=== PATIENT | female | born 1990 | race Caucasian/White ===

== ENCOUNTER 2017-08-17 06:18 | Emergency (ER) | payer OTHER ==
[2017-08-17 06:44] VITALS: BP 122/73; PULSE 79; TEMP 98.6; BMI 19.5
--- NOTE | 2017-08-17 06:56 | PDOC ---
History of Present Illness - General History Source: Patient Exam Limitations: No Limitations <Debbie Darnell - Last Filed: 08/17/17 06:50> - General History Source: Patient Exam Limitations: No Limitations - History of Present Illness Initial Comments: 08/17/17 06:56 The patient is a 26 year old female with no significant PMH who presents to the emergency department with a cat bite from approximately 1 hour ago. 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 The cat began seizing and bit the patient, leaving a small punctate on the patients left fourth finger. The patient was evaluated last year for a similar episode and received a Tetanus shot during that visit. The patient denies chest pain, shortness of breath, headache and dizziness. Denies fever, chills, nausea, vomit, diarrhea and constipation. Denies dysuria, frequency, urgency and hematuria. Allergies: NKA Social history: No reported cigarette, alcohol, or drug use. PCP: Dr. Reed <Chase Soto - Last Filed: 08/17/17 06:57> - General Chief Complaint: Bite Stated Complaint: INJURY/ANIMAL BITE Past History - Suicide/Smoking/Psychosocial Hx Smoking History: Never smoked Have you smoked in the past 12 months: No Number of Cigarettes Smoked Daily: 0 Information on smoking cessation initiated: No 'Breaking Loose' booklet given: 01/20/16 Hx Alcohol Use: No Drug/Substance Use Hx: No Substance Use Type: None <Debbie Darnell - Last Filed: 08/17/17 06:50> <Chase Soto - Last Filed: 08/17/17 06:57> - Past Medical History Allergies/Adverse Reactions: Allergies Allergy/AdvReac Type Severity Reaction Status Date / Time No Known Allergies Allergy Verified 08/17/17 06:42 Home Medications: Ambulatory Orders Amoxicillin/Potassium Clav [Augmentin 875-125 Tablet] 1 each PO BID #14 tablet 08/17/17 Review of Systems - Review of Systems Comments:: 08/17/17 06:57 GENERAL/CONSTITUTIONAL: No fever or chills. No weakness. HEAD, EYES, EARS, NOSE AND THROAT: No change in vision. No ear pain or discharge. No sore throat. CARDIOVASCULAR: No chest pain or shortness of breath. RESPIRATORY: No cough, wheezing, or hemoptysis. GASTROINTESTINAL: No nausea, vomiting, diarrhea or constipation. GENITOURINARY: No dysuria, frequency, or change in urination. MUSCULOSKELETAL: No joint or muscle swelling or pain. No neck or back pain. SKIN: (+) Punctate to left ring finger. NEUROLOGIC: No headache, vertigo, loss of consciousness, or change in strength/ sensation. ENDOCRINE: No increased thirst. No abnormal weight change. HEMATOLOGIC/LYMPHATIC: No anemia, easy bleeding, or history of blood clots. ALLERGIC/IMMUNOLOGIC: No hives or skin allergy. <Chase Soto - Last Filed: 08/17/17 06:57> *Physical Exam - Vital Signs Last Vital Signs Temp Pulse Resp BP Pulse Ox 98.6 F 79 14 122/73 98 08/17/17 06:42 08/17/17 06:42 08/17/17 06:42 08/17/17 06:42 08/17/17 06:42 <Debbie Darnell - Last Filed: 08/17/17 06:50> - Vital Signs Last Vital Signs Temp Pulse Resp BP Pulse Ox 98.6 F 79 14 122/73 98 08/17/17 06:42 08/17/17 06:42 08/17/17 06:42 08/17/17 06:42 08/17/17 06:42 - Physical Exam Comments: 08/17/17 06:57 GENERAL: Awake, alert, and fully oriented, in no acute distress HEAD: No signs of trauma EYES: PERRLA, EOMI, sclera anicteric, conjunctiva clear ENT: Auricles normal inspection, hearing grossly normal, nares patent, oropharynx clear without exudates. Moist mucosa NECK: Normal ROM, supple, no lymphadenopathy, JVD, or masses LUNGS: Breath sounds equal, clear to auscultation bilaterally. No wheezes, and no crackles HEART: Regular rate and rhythm, normal S1 and S2, no murmurs, rubs or gallops ABDOMEN: Soft, nontender, normoactive bowel sounds. No guarding, no rebound. No masses EXTREMITIES: Normal range of motion, no edema. No clubbing or cyanosis. No cords, erythema, or tenderness. DP/PT pulses 2+ and symmetric. NEUROLOGICAL: Cranial nerves II through XII grossly intact. Normal speech, normal gait SKIN: (+) 1 mm puncture wound to the radial left finger. No active bleeding. Warm, Dry, normal turgor, no rashes or lesions noted. <Chase Soto - Last Filed: 08/17/17 06:57> Medical Decision Making - Medical Decision Making 08/17/17 06:50 26 yo F with h/o no pmhx here wtih c/o puncture wound / cat bite to left hand ring finger. happened just prior to arrival. 1 hr ago. 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 pt states domestic cat, happened during a siezure. immunization status unknown. last tetanus one year ago. on exam awake alert lungs clear heart rrr no mrg. skin warm and dry. small punctate wound distal left ring finger near nail bed, 1 mm . no active bleeding. plan: no indication for vaccination as was not actual bit, happened during seizure, domestic animal. will treat prophylactically with augmentin. and dc home. <Debbie Darnell - Last Filed: 08/17/17 06:50> *DC/Admit/Observation/Transfer - Discharge Dispostion Admit: No <Debbie Darnell - Last Filed: 08/17/17 06:50> - Attestations Scribe Attestion: 08/17/17 06:57 Documentation prepared by Chase Soto, acting as medical anthropology director for Debbie Darnell MD. <Chase Soto - Last Filed: 08/17/17 06:57> Diagnosis at time of Disposition: Cat bite of finger - Prescriptions Prescriptions: Amoxicillin/Potassium Clav [Augmentin 875-125 Tablet] 1 each PO BID #14 tablet - Referrals Referrals: Marcel Reed MD [Primary Care Provider] - - Patient Instructions Printed Discharge Instructions: How to Care for a Domestic Animal Bite Additional Instructions: take augmentin antibiotic twice daily x 7 days. return for redness, swelling, or any signs of infection, or any concerns. you should soak finger in warm soapy water twice daily. you can apply bacitracin ointment twice daily. follow up with your primary doctor.
[2017-08-17] MEDS ORDERED: AMOX TR/POT CLAV 875MG/125MG TABLETS (FP) ONE (06:57)
[2017-08-17] MEDS ORDERED: AMOX TR/POT CLAV 875MG/125MG TABLETS (FP) PO ONE (07:00)
[2017-08-17] MEDS ORDERED: BACITRACIN 0.9 GM PACKET ONE (07:02)
== END 2017-08-17 07:04 | disposition home or self-care (01) ==
LOC: JER 06:18
DX: S61.255A Open bite of left ring finger without damage to nail, initial encounter (principal); W55.01XA Bitten by cat, initial encounter; Y93.89 Activity, other specified; Y92.238 Other place in hospital as the place of occurrence of the external cause
CPT/HCPCS: 99281-25

== ENCOUNTER 2018-12-01 18:07 | Emergency (ER) | payer OTHER ==
[2018-12-01 18:13] VITALS: BP 165/83; PULSE 107; TEMP 97.7; BMI 20.3
--- NOTE | 2018-12-01 19:21 | PDOC ---
History of Present Illness - General Chief Complaint: Bite Stated Complaint: DOG BITE Time Seen by Provider: 12/01/18 18:41 History Source: Patient Exam Limitations: No Limitations - History of Present Illness Initial Comments: 12/01/18 20:13 Patient is a 28-year-old female no past medical history who presents to the ER today with a dog bite to her right thumb. 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 Patient states she was treated at dog was having a seizure when the dog bit her. Patient states her tetanus is up-to-date. She states that the dog was not up-to-date with his rabies vaccinations. She states that the dog is admitted for further observation. The don't there is a possibility dog may be euthanized. The hospital filed a bite report with the health department as well. Patient states she then placed a dressing over the thumb to prevent bleeding. Denies fevers, chills numbness and tingling in the extremities, weakness to the extremity. Past History - Travel Traveled outside of the country in the last 30 days: No Close contact w/someone who was outside of country & ill: No - Past Medical History Allergies/Adverse Reactions: Allergies Allergy/AdvReac Type Severity Reaction Status Date / Time No Known Allergies Allergy Verified 12/01/18 18:12 Home Medications: Ambulatory Orders Amox-Tr/K Cl [Augmentin - 875Mg Tablet] 1 tab PO BID #20 tablet 12/01/18 Bupropion HCl [Bupropion Xl] 150 mg PO ASDIR 12/01/18 COPD: No - Suicide/Smoking/Psychosocial Hx Smoking History: Never smoked Have you smoked in the past 12 months: No Number of Cigarettes Smoked Daily: 0 'Breaking Loose' booklet given: 01/20/16 Hx Alcohol Use: No Drug/Substance Use Hx: No Substance Use Type: None Review of Systems - Review of Systems Able to Perform ROS?: Yes Comments:: 12/01/18 19:34 CONSTITUTIONAL: Absent: fever, chills, diaphoresis, generalized weakness, malaise, loss of appetite HEENT: Absent: rhinorrhea, nasal congestion, throat pain, throat swelling, difficulty swallowing, mouth swelling, ear pain, eye pain, visual Changes CARDIOVASCULAR: Absent: chest pain, loss of consciousness, palpitations, irregular heart rate, peripheral edema RESPIRATORY: Absent: cough, shortness of breath, dyspnea with exertion, orthopnea, wheezing, stridor, hemoptysis GASTROINTESTINAL: Absent: abdominal pain, abdominal distension, nausea, vomiting, diarrhea, constipation, melena, hematochezia GENITOURINARY: Absent: dysuria, frequency, urgency, hesitancy, hematuria, flank pain, genital pain MUSCULOSKELETAL: Absent: myalgia, arthralgia, joint swelling SKIN: Present: Dog bite to R thumb Absent: rash, itching, pallor HEMATOLOGIC/IMMUNOLOGIC: Absent: easy bleeding, easy bruising, lymphadenopathy, frequent infections ENDOCRINE: Absent: unexplained weight gain, unexplained weight loss, heat intolerance, cold intolerance NEUROLOGIC: Absent: headache, focal weakness or paresthesias, dizziness, unsteady gait, seizure, mental status changes, bladder or bowel incontinence PSYCHIATRIC: Absent: anxiety, depression, suicidal or homicidal ideation, hallucinations. Is the patient limited Taiwanese proficient: No *Physical Exam - Vital Signs Last Vital Signs Temp Pulse Resp BP Pulse Ox 97.7 F 107 H 20 165/83 99 12/01/18 18:09 12/01/18 18:09 12/01/18 18:09 12/01/18 18:09 12/01/18 18:09 - Physical Exam Comments: 12/01/18 19:35 GENERAL: The patient is awake, alert, and fully oriented, in no acute distress. HEAD: Normal with no signs of trauma. EYES: Pupils equal, round and reactive to light, extraocular movements intact, sclera anicteric, conjunctiva clear. EXTREMITIES: Normal range of motion, no edema. NEUROLOGICAL: Normal speech, normal gait. PSYCH: Normal mood, normal affect. SKIN: R thumb with a flap wound to the pad of the R thumb. measuring approximately 1 cm. No active bleeding. Warm, Dry, normal turgor, no rashes or lesions noted. Moderate Sedation - Procedure Monitoring Vital Signs: Procedure Monitoring Vital Signs Temperature 97.7 F 12/01/18 18: Pulse Rate 107 H 12/01/18 18: Respiratory Rate 20 12/01/18 18:09 Blood Pressure 165/83 12/01/18 18:09 O2 Sat by Pulse Oximetry (%) 99 12/01/18 18:09 Medical Decision Making - Medical Decision Making 12/01/18 20:14 Patient is a 28-year-old female who presents to the ER for dog bite to her right thumb which happened this afternoon. On exam there is a 1 cm flap wound to the pad of the right thumb. No active bleeding. Flap adherent to the wound due to the dressing. Unable to pull the skin away due to secondary intention. Patient does not meet criteria for rabies vaccination at this time as the dog is currently admitted in the [facility]. The dog will be further monitored for neurological changes and possibly euthanized. If the dog is euthanized, it will be submitted for rabies testing. Informed patient she has up until 10 days to return for rabies vaccination if necessary. Patient verbalizes understanding. Tetanus is up-to-date. We'll start Augmentin at this time. Discharge home. I discussed the physical exam findings, ancillary test results and final diagnoses with the patient. I answered all of the patient's questions. The patient was satisfied with the care received and felt comfortable with the discharge plan and treatment plan. The Patient agrees to follow up with the primary care physician/specialist within 24-72 hours. Return precautions were given. *DC/Admit/Observation/Transfer Diagnosis at time of Disposition: Dog bite Qualifiers: Encounter type: initial encounter Qualified Code(s): W54.0XXA - Bitten by dog, initial encounter - Discharge Dispostion Disposition: HOME Condition at time of disposition: Stable Decision to Admit order: No - Prescriptions Prescriptions: Amox-Tr/K Cl [Augmentin - 875Mg Tablet] 1 tab PO BID #20 tablet - Referrals Referrals: Marcel Reed MD [Primary Care Provider] - - Patient Instructions Printed Discharge Instructions: DI for Animal Bites Additional Instructions: Your bit by a dog today. Continue to monitor the dog at work. If the dog becomes euthanized and submitted for testing follow-up on the rabies status. If the dog is not euthanized continue to monitor it for behavioral changes. If the dog has behavioral changes or test positive for rabies you need to come back within the next 10 days for rabies shots. Keep the wounds clean and dry. Please take the Augmentin twice daily for 10 days. Return to the emergency department if you have worsening pain to the thumb or redness to the thumb concerning for infection, purulent drainage from the thumb , fevers, or give any changes in your symptoms. - Post Discharge Activity
[2018-12-01] MEDS ORDERED: BACITRACIN 15 GM TUBE TOPICAL OINTMENT TP ONE (19:46)
[2018-12-01] MEDS ORDERED: BACITRACIN 15 GM TUBE TOPICAL OINTMENT ONE (19:47)
== END 2018-12-01 19:47 | disposition home or self-care (01) ==
LOC: JERFT 18:07
DX: S61.051A Open bite of right thumb without damage to nail, initial encounter (principal); W54.0XXA Bitten by dog, initial encounter; Y99.0 Civilian activity done for income or pay; Y93.89 Activity, other specified; Y92.89 Other specified places as the place of occurrence of the external cause; Y99.8 Other external cause status
CPT/HCPCS: 99281-25